=== PATIENT | male | born 1975 | race Caucasian/White ===

== ENCOUNTER 2017-02-19 14:57 | Emergency (ER) | payer OTHER ==
[2017-02-19 15:22] VITALS: BP 134/87
--- NOTE | 2017-02-19 15:57 | UC ---
Skin Complaint HPI - HPI Summary HPI Summary: patient has had a lump on the right lower back for a few years, he thinks it is getting biger. it is not painful, and does not restrict mobility - History of Current Complaint Chief Complaint: UCGeneralIllness Time Seen by Provider: 02/19/17 15:49 Stated Complaint: LUMP ON BACK Hx Obtained From: Patient Onset/Duration: Still Present Timing: Constant Current Severity: None Location: Discrete - lower right back Character: Swelling Aggravating: Nothing Alleviating: Nothing - Allergy/Home Medications Allergies/Adverse Reactions: Allergies Allergy/AdvReac Type Severity Reaction Status Date / Time No Known Allergies Allergy Verified 02/19/17 15:10 Home Medications: Home Medications Diltiazem TAB* [Cardizem 30 MG Tab*] 1 tab DAILY 02/19/17 [History Confirmed 04/02] Gabapentin TAB(NF) [Neurontin 600 mg TAB(NF)] 2 tab PO TID 02/19/17 [History Confirmed 02/19/17] Sotalol HCl 120 mg PO BID 02/19/17 [History Confirmed 02/19/17] Review of Systems Constitutional: Negative Skin: Other - lump on back Eyes: Negative ENT: Negative Respiratory: Negative Cardiovascular: Negative Gastrointestinal: Negative Genitourinary: Negative Motor: Negative Neurovascular: Negative Musculoskeletal: Negative Neurological: Negative Psychological: Negative All Other Systems Reviewed And Are Negative: Yes PMH/Surg Hx/FS Hx/Imm Hx Previously Healthy: Yes Cardiovascular History Of: Reports: Cardiac Disorders - A-fib; SVT, Hypertension - Surgical History Surgical History: Yes Surgery Procedure, Year, and Place: Tonsils. RIGHT hand pins. RIGHT shoulder - Family History Known Family History: Negative: Hypertension - Social History Alcohol Use: Rare Substance Use Type: None Smoking Status (MU): Never Smoked Tobacco - Immunization History Most Recent Influenza Vaccination: NONE Most Recent Tetanus Shot: UTD Most Recent Pneumonia Vaccination: N/A Physical Exam Triage Information Reviewed: Yes Appearance: Well-Appearing, Well-Nourished, Pain Distress Vital Signs: Initial Vital Signs Temp 98.4 F 02/19/17 15:13 Pulse 56 02/19/17 15:13 Resp 18 02/19/17 15:13 BP 134/87 02/19/17 15:13 Pulse Ox 97 02/19/17 15:13 Vital Signs Reviewed: Yes Eye Exam: Normal Eyes: Positive: Conjunctiva Clear ENT Exam: Normal ENT: Positive: Hearing grossly normal, Pharynx normal, TMs normal Neck exam: Normal Respiratory Exam: Normal Respiratory: Positive: Chest non-tender, Lungs clear, Normal breath sounds Cardiovascular Exam: Normal Cardiovascular: Positive: RRR, No Murmur, Pulses Normal Abdominal Exam: Normal Abdomen Description: Positive: Nontender, No Organomegaly, Soft Bowel Sounds: Positive: Present Musculoskeletal Exam: Normal Musculoskeletal: Positive: Strength Intact, ROM Intact, No Edema Neurological Exam: Normal Neurological: Positive: Alert, Muscle Tone Normal Psychological Exam: Normal Skin: Positive: significant lesion(s) - small 5 cm induration of mobile, smooth soft superficial cyst in the lower right back. Course/Dx - Course Course Of Treatment: hx obtained, exam performed, meds reviewed, eduacted on cysts and what s/s that may warrent more treatment - Differential Diagnoses - Skin Complaint Differential Diagnoses: Abscess, Other - cyst - Diagnoses Provider Diagnoses: sebaceous cyst of the low back Discharge - Discharge Plan Condition: Stable Disposition: HOME Patient Education Materials: Epidermal Inclusion Cysts (ED) Referrals: Antoine Dickerson MD [Medical Doctor] - Additional Instructions: 1. no treatment is needed at this time 2. If it starts to get bigger, red, painful or develops a pustule, return for infection 3. If it becomes bothersome and removal is necessary, a visit to your tinware lithograph press operator or a general sergeon, sometiumes even your family physician will remove if if they are comfortable with it.
== END 2017-02-19 16:22 | disposition home or self-care (01) ==
LOC: UCEAST 14:57
DX: L72.3 Sebaceous cyst (principal); I48.91 Unspecified atrial fibrillation; I47.1 Supraventricular tachycardia; I10 Essential (primary) hypertension
CPT/HCPCS: 99202; G0463